=== PATIENT | male | born 2005 | race Caucasian/White ===

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

== ENCOUNTER 2025-09-19 10:57 | Emergency (ER) | payer OTHER ==
[~2025-09-19] VITALS: Ht 182.9 cm; Wt 94.8 kg
[2025-09-19 11:06] VITALS: BP 149/80
== END 2025-09-19 11:18 | disposition home or self-care (01) ==
LOC: ER 10:57
DX: Z00.00 Encounter for general adult medical examination without abnormal findings (principal)
CPT/HCPCS: 99282